=== PATIENT | male | born 1970 | race Caucasian/White ===

== ENCOUNTER 2019-10-21 20:23 | Inpatient (IN) ==
[2019-10-21] MEDS ORDERED: cefTRIAXone SODIUM 1,000 MG/50 ML BAG IV STA (20:54)
[2019-10-21] MEDS ORDERED: ACETAMINOPHEN 500 MG TAB PO STA (20:54)
[2019-10-21] MEDS ORDERED: SODIUM CHLORIDE 0.9% 1000ML 2,000 ML IV ONE (20:54)
--- NOTE | 2019-10-21 20:55 | XRay Report ---
XR chest 1V portable HISTORY: 48 years-old Male Sepsis acute sepsis COMPARISON: CT abdomen and pelvis 07/05/2013 TECHNIQUE: Portable AP view of the chest FINDINGS: Cardiac silhouette is mildly enlarged. No pneumothorax, pleural effusion or overt pulmonary edema. Th e right lung is clear. A large area of consolidation involving the lateral left midlung. Degenerative changes of the shoulders and spine. Possible loose body of the right subscapularis recess measures u p to approximately 2 cm. IMPRESSION: Large area of consolidation involving the lateral left midlung is suggestive of pneumonia in the appropriate clinical setting. Follow-up imaging after treatment course is needed to document resolution. ACT 112: Negative or not required by law. The above report was generated using voice recognition software. It may contain grammatical, syntax o r spelling errors. Electronically signed by: Franklin Shelby M.D. 10/21/2019 8:54 PM
[2019-10-21] MEDS ORDERED: AZITHROMYCIN 250 MG TAB PO ONE (20:58)
[2019-10-21 21:29] LABS: Basophils # (auto) 0.01 K/uL (0-0.2); Basophils % (auto) 0.1 %; Hematocrit (blood only) 39.7 % (42-52); Hemoglobin 14.8 g/dL (14.0-18.0); Immature Granulocytes # (auto) 0.02 K/uL (0.00-0.02); Immature Granulocytes % (auto) 0.2 %; Lymphocytes # (auto) 1.11 K/uL (1.2-3.4); Mean Corpuscular Hemoglobin 32.5 pg (25-34); Mean Corpuscular Hgb Conc 37.3 g/dL (32-36); Mean Corpuscular Volume 87.1 fL (80-100); Mean Platelet Volume 9.4 fL (7.4-10.4); Monocytes # (auto) 2.48 K/uL (0.11-0.59); Monocytes % (auto) 24.5 %; Neutrophils # (auto) 6.51 K/uL (1.4-6.5); Neutrophils % (auto) 64.2 %; Platelet Count 168 K/uL (130-400); RDW Coefficient of Variation 11.9 % (11.5-14.5); Red Blood Count 4.56 M/uL (4.7-6.1); White Blood Count 10.13 K/uL (4.8-10.8)
[2019-10-21 21:34] LABS: INR 1.1 (0.9-1.1); Partial Thromboplastin Ratio 1.2; Partial Thromboplastin Time 31.4 Seconds (21.0-31.0); Prothrombin Time 11.1 Seconds (9.0-12.0)
[2019-10-21 21:41] LABS: Albumin Level 3.2 gm/dl (3.4-5.0); BUN Creatinine Ratio 9.1 (10-20); Calcium 9.1 mg/dl (8.5-10.1); Creatinine Clr Calc Pharmacy 102.8 ml/min; Est GFR (African American) 100.1; Est GFR (Non-African American) 86.3; Potassium 3.1 mmol/L (3.5-5.1)
[2019-10-21 21:44] LABS: Albumin Globulin Ratio 0.7 (0.9-2); Bilirubin,Total 0.5 mg/dl (0.2-1); Globulin 4.7 gm/dl (2.5-4.0); Total Protein 7.9 gm/dl (6.4-8.2)
[2019-10-21 21:54] LABS: Appearance Urine Clear (Clear); Bacteria Urine Automated Negative (Negative); Bilirubin Urine Negative (Negative); Blood Urine Negative (Negative); Color Urine Dark Yellow; Glucose Urine UA Negative (Negative); Leukocyte Esterase Urine Negative (Negative); Nitrite Urine Negative (Negative); Protein Urine Trace (Negative); RBC Urine Automated 0-4 /hpf (0-4); Urobilinogen Urine Negative (Negative)
[2019-10-21 22:06] LABS: Ketones Urine 4+ (Negative)
--- NOTE | 2019-10-21 22:52 | History & Physical Report ---
Date of Service October 21, 2019 Assessment & Plan (1) Pneumonia: Manohar Garcia is a 48-year-old male with a past medical history of hypertension who presented with 1 week of fever, chills, shortness of breath, and productive cough and who is been admitted for left sided community-acquired pneumonia and hyponatremia. Sepsis 2/2 community-acquired pneumonia Left-sided consolidation on CXR Tachypneic, febrile, hypertensive on admission Continue empiric Rocephin, azithromycin Legionella antigen pending No indication for steroids at this time Lactate within normal limits No current oxygen requirement, goal SPO2 greater than 90% CBC daily Hyponatremia, sodium 124 Suspected 2/2 SIADH of pneumonia. Legionella antigen pending as above Received 2 L NSS bolus, continue NSS 125 cc/h. Expected correction rate of approximately 0.5 serum sodium per liter, expect more rapid correction if diuresis increases BMP daily Urine/serum osmolality, urine random sodium ordered Hypokalemia Potassium 3.1 Oral repletion, KCl 20 M EQ 3 times daily x1 day Hypertension Continue lisinopril Continue felodipine Right upper quadrant discomfort, mild abdominal distention Transaminases normal May have obstipation versus mild ileus in the setting of acute illness MiraLAX twice daily Recommend flat plate if no bowel movement within 1 day to assess stool burden DVT prophylaxis Ambulate Diet: Regular CODE STATUS: Full code (2) Hypertension: (3) Hyponatremia: (4) Sepsis: History of Present Illness Chief Complaint: Shortness of breath, right abdominal pain Primary Care Provider: Robert Velazquez DO Manohar Garcia is a 48-year-old male with a past medical history of hypertension who presents with 1 week of shortness of breath, productive cough, and fever suspicious for pneumonia. Manohar reports that he began feeling ill around 5 days ago, his symptoms started with a cough, congestion, and fever to 101. He has experienced chills and sweats. He has a decreased appetite and mild nausea, without vomiting. His cough has been productive for dark brown sputum. He has had a mild intermittent headache. Denies sinus congestion. Denies diarrhea or constipation. He has not had a bowel movement in 3 days. Denies dysuria. He has pain in his throat and upper chest on coughing, no chest pain or chest tightness at rest. No p alpitations. No pain on inspiration. His shortness of breath worsens with exertion. No history of asthma or COPD. He became concerned when he also developed right abdominal pain yesterday. Pain is worse on palpation. He endorses mild distention of his abdomen on the right side. He was prescribed doxycycline and prednisone as an outpatient, only took 1 dose of these before coming into the hospital for pneumonia with associated hyponatremia. Endorses 4 beer per day 6 night per week alcohol intake, no prior history of withdrawal. Last drink 7 days ago. Denies tremors. Medical history: Colorblindness, hypertension Medications: Lisinopril, felodipine. Doxycycline, prednisone for 1 day. Surgical history: Appendectomy, cholecystectomy. Right index finger, left ankle reconstruction without residual hardware. Social: Lives in [place] with his . Denies current and former tobacco use. Endorses 4 beer per night 6 nights a week alcohol intake. Last drink 7 days ago, no history of alcohol withdrawal. CODE STATUS: Full code, his would be his surrogate decision maker. Allergies Allergy/AdvReac Type Severity Reaction Status Date / Time morphine Allergy Mild RASH Unverified 10/21/19 21:52 Home Medications Home Medications Medication Instructions Recorded Confirmed Type codeine-guaifenesin 5 ml PO UD PRN 10/21/19 10/21/19 History doxycycline hyclate 100 mg PO BID 10/21/19 10/21/19 History felodipine 10 mg PO DAILY 10/21/19 10/21/19 History glucos sul 4GEw-[id number]-yfxlu-C-Mn 2 cap PO DAILY 10/21/19 10/21/19 History [Glucosamine Chondroitin] lisinopril 30 mg PO DAILY 10/21/19 10/21/19 History omega 4-wug-gym-fish oil [Fish Oil] 1 cap PO DAILY 10/21/19 10/21/19 History prednisone 40 mg PO UD 10/21/19 10/21/19 History Past Med/Surg History Surgical History (Updated 10/21/19 @ 23:02 by Oscra Jordan MD) H/O hand surgery R index finger, no residual hardware History of ankle surgery L ankle, no residual hardware Hx of cholecystectomy Status post appendectomy Social History Preferred Language: Moroccan Feels Safe at Home: Yes Smoking Status: Never smoker Review of Systems Review of Systems: All systems reviewed & are unremarkable except as noted in HPI & below Physical Exam Physical Exam: General: A&Ox3. Appears fatigued. Cooperative HEENT: Atraumatic, normocephalic. Pulm: Left-sided musical lung sounds with rales. Right side clear, without wheezes, rales, or rhonchi. Symmetrical chest rise. No increased work of breathing. No respiratory distress. On room air. Cardiac: Tachycardic, -mrg. Radial pulses intact and symmetrical. Abdominal: Softly distended, mild right upper quadrant tenderness. No rebound tenderness. Bowel sounds present, slightly decreased. CN II: Visual [place] are full to confrontation. Pupils are equal and react to light and accomidation. Visual acuity grossly intact. CN III, IV, : At primary gaze, there is no eye deviation. EoM intact without nystagmus. No visual field cuts. CN V: Facial sensation is intact to soft touch in all 3 divisions bilaterally. CN VII: No facial asymmetry, full strength to eyebrow raise, smile, eye close, and cheek puff. CN VII: Hearing is grossly intact. CN IX, X: Palate elevates symmetrically. Phonation is normal without dysarthria. CN XI: Head turning and shoulder shrug are intact CN XII: Tongue protrudes midline. Sensory: Light touch, pinprick intact in upper and low extremities without deficit or asymmetry. Strength: RUE: Shoulder flexion/extension/internal rotation/external rotation, elbow flexion/extension, finger flexion/extension, accessibility lift technician strength, interosseous 5/5 LUE: Shoulder flexion/extension/internal rotation/external rotation, elbow flexion/extension, finger flexion/extension, accessibility lift technician strength, interosseous 5/5 RLE: Hip flexion, knee flexion/extension, ankle plantar flexion/dorsiflexion 5/5 LLE: Hip flexion, knee flexion/extension, ankle plantar flexion/dorsiflexion 5/5 Results & Data Vital Signs (Past 12 Hours) Vital Signs Temp Pulse Resp BP Pulse Ox 10/21/19 22:31 104 H 15 91 10/21/19 22:30 106 H 17 145/91 H 92 10/21/19 22:01 110 H 22 92 10/21/19 22:00 115 H 20 150/90 H 93 10/21/19 21:44 110 H 19 91 10/21/19 21:43 110 H 26 H 152/89 H 92 10/21/19 21:40 113 H 20 92 10/21/19 21:30 121 H 18 10/21/19 21:00 114 H 27 H 10/21/19 20:57 113 H 19 10/21/19 20:28 39.0 C H 117 H 22 147/87 H 93 Supervising Physician Co-Signing Physician Notes Patient seen and examined, chart reviewed, case discussed with and I agree with his assessment and plan as documented above. Briefly, patient is a 48-year-old male with history of hypertension presenting with left- sided pneumonia. Patient complaining of cough/shortness of breath/nausea/chest pain associated with cough. On physical exam he is febrile at 39, tachycardic at 110 bpm, tachypneic at 26 breaths/min, saturating 92% on room air. Blood pressure stable at 152/89 Generalsitting comfortably in bed, no acute distress, ill in appearance Skinwarm, well-perfused, no rashes or lesions HEENTnormocephalic/atraumatic, pupils equal round and reactive to light, moist mucous membranes, neck supple Heart+ S1/S2, regular, tachycardic, no murmur/rub/gallops Lungsequal air entry bilaterally, left lung with scattered rhonchi and wheezes, right lung is clear to auscultation Abdomen+ bowel sounds, soft, nontender/nondistended Extremitieswarm, well-perfused, no clubbing/cyanosis/edema Labs and images reviewed. Significant for sodium = 124, potassium = 3.1, chloride = 87, flu was negative Chest x-ray with large area of consolidation involving the lateral left mid lung Assessment/[id number] male with history of hypertension presenting with left midlung pneumonia. Immunocompetent, no recent hospitalizations. Hyponatremia with sodium = 124. No prior labs to suggest chronicity. Patient is asymptomatic. Differential to include SIADH in setting of pulmonary illness, Legionella pneumonia, low solute state in patient with poor p.o. intake Admit to medical floor Treatment with azithromycin and ceftriaxone for community-acquired pneumonia Hyponatremia work-up with urine and serum osmolality, random urine sodium. -Remainder of plan as above Resident Activity Tracking Resident Involvement: Resident Care Provided Care Provided: [facility]
[2019-10-21] MEDS ORDERED: GUAIFENESIN/CODEINE 200MG/20MG 10ML UDC PO PRN (23:51)
[2019-10-21] MEDS ORDERED: ACETAMINOPHEN 325 MG TAB PO PRN (23:51)
[2019-10-21] MEDS ORDERED: ONDANSETRON INJ 2 MG/ML 2 ML VIAL IV PRN (23:51)
--- NOTE | 2019-10-21 23:51 | Emergency Department Note ---
Entered by Marisol Morgan acting as a scribe for Jake Roe DO History of Present Illness General Chief complaint: Referred by Doctor Stated complaint: LOW BLOOD CELLIUM Source: patient History of Present Illness Onset (ago): day(s) (5) Location: chest Pain Consistency: + other (worsening) Maximum Pain Intensity: 4 Quality: + other (pneumonia) Associated symptoms: + denies other symptoms (pain or burning with urination, sore throat, ear pain), + chest pain, + cough and + fever/chills; no nausea/vomiting The patient is a 48 year old male who presents to the Emergency Room with complaints of worsening pneumonia in his chest beginning 5 days ago. The patient reports a cough beginning 4 days ago, and chest pain beginning 2 days ago. He reports a fever of 101 - 103. The patient denies nausea, vomiting, pain or burning with urination, sore throat, and ear pain. He notes he visited his PCP earlier today who wants him to get a chest x-ray. He notes he was started on Doxycycline today. The patient reports a history of high blood pressure, an appendectomy, and a cholecystectomy. He states he drinks approximately 4 drinks per night several times a week. No other exacerbating or remitting factors. Home Medications Home Medications Medication Instructions Recorded Confirmed Type codeine-guaifenesin 5 ml PO UD PRN 10/21/19 10/21/19 History doxycycline hyclate 100 mg PO BID 10/21/19 10/21/19 History felodipine 10 mg PO DAILY 10/21/19 10/21/19 History glucos sul 8UMv-lgy-jdqoc-C-Mn 2 cap PO DAILY 10/21/19 10/21/19 History [Glucosamine Chondroitin] lisinopril 30 mg PO DAILY 10/21/19 10/21/19 History omega 5-iuj-hln-fish oil [Fish Oil] 1 cap PO DAILY 10/21/19 10/21/19 History prednisone 40 mg PO UD 10/21/19 10/21/19 History Allergies Allergy/AdvReac Type Severity Reaction Status Date / Time morphine Allergy Mild RASH Unverified 10/21/19 21:52 Past Med/Surg History Medical History Hypertension Surgical History H/O hand surgery R index finger, no residual hardware History of ankle surgery L ankle, no residual hardware Hx of cholecystectomy Status post appendectomy Family History Other Heart disease Hypertension Social History Preferred Language: [place] Feels Safe at Home: Yes Smoking Status: Never smoker Review of Systems See HPI for pertinent positives & negatives. and A total of 10 systems reviewed and were otherwise negative Physical Exam Vital Signs Vital Signs - 24 hr 10/21/19 20:28 10/21/19 20:57 10/21/19 21:00 Temperature 39.0 C H Temperature Source Oral Pulse Rate 117 H 113 H 114 H Pulse Rate from SpO2 Sensor Respiratory Rate 22 19 27 H Blood Pressure 147/87 H Blood Pressure Mean 107 Blood Pressure Position Sitting Pulse Oximetry 93 Oxygen Delivery Method Sepsis Recent Fever Within 48 Hours No Sepsis New/Unexplained Change in Mental Status No Sepsis Action Taken by Nursing No Action Required 10/21/19 21:30 10/21/19 21:40 10/21/19 21:43 Temperature Temperature Source Pulse Rate 121 H 113 H 110 H Pulse Rate from SpO2 Sensor 109 H Respiratory Rate 18 20 26 H Blood Pressure 152/89 H Blood Pressure Mean 95 Blood Pressure Position Pulse Oximetry 92 92 Oxygen Delivery Method Room Air Sepsis Recent Fever Within 48 Hours Sepsis New/Unexplained Change in Mental Status Sepsis Action Taken by Nursing 10/21/19 21:44 10/21/19 22:00 10/21/19 22:01 Temperature Temperature Source Pulse Rate 110 H 115 H 110 H Pulse Rate from SpO2 Sensor 110 H 114 H 110 H Respiratory Rate 19 20 22 Blood Pressure 150/90 H Blood Pressure Mean 96 Blood Pressure Position Pulse Oximetry 91 93 92 Oxygen Delivery Method Sepsis Recent Fever Within 48 Hours Sepsis New/Unexplained Change in Mental Status Sepsis Action Taken by Nursing 10/21/19 22:30 10/21/19 22:31 10/21/19 23:00 Temperature 37.3 C Temperature Source Pulse Rate 106 H 104 H 104 H Pulse Rate from SpO2 Sensor 106 H 104 H 104 H Respiratory Rate 17 15 23 Blood Pressure 145/91 H 123/86 Blood Pressure Mean 111 106 Blood Pressure Position Pulse Oximetry 92 91 92 Oxygen Delivery Method Room Air Sepsis Recent Fever Within 48 Hours Sepsis New/Unexplained Change in Mental Status Sepsis Action Taken by Nursing GENERAL: sitting up in bed, ill-appearing, wearing hospital gown EYE EXAM: normal conjunctiva OROPHARYNX: no exudate, no erythema, lips, buccal mucosa, and tongue normal and mucous membranes are dry NECK: supple, no nuchal rigidity, no adenopathy, non-tender LUNGS: Rhonchi in left mid lung. Normal chest wall mechanics HEART: tachycardia, no murmurs, S1 normal and S2 normal ABDOMEN: abdomen soft, non-tender, normo-active bowel sounds, no masses, no rebound or guarding. BACK: Back is symmetrical on inspection and there is no deformity, no midline tenderness, no CVA tenderness. SKIN: no rashes and no bruising UPPER EXTREMITIES: upper extremities are grossly normal. LOWER EXTREMITIES: No pitting edema. NEURO EXAM: Normal sensorium, cranial nerves II-XII grossly intact, normal speech, no gross weakness of arms, no gross weakness of legs. Course Course ED COURSE: Vital signs were reviewed and showed tachycardia, hypertension, and fever. The patients medical record was reviewed The above diagnostic studies were performed and reviewed. ED treatments and interventions as stated above. 2049: The patient was evaluated in room C08. A complete history and physical examination was performed. 2124: Upon reevaluation, the patient is resting more comfortably. I discussed my findings with the patient and he understands and agrees with the treatment plan. Based on the patients age, coexisting illnesses, exam and lab findings the decision to treat as an inpatient was made. I spoke with Dr. Swanson - [facility] Hospitalist who agrees to further evaluate the patient. The patient remained stable while under my care. The patient will be evaluated for further management. Administered Medications Discontinued Medications Acetaminophen (Tylenol) 1,000 mg PO NOW STA Stop: 10/21/19 20:55 Last Admin: 10/21/19 20:59 Dose: 1,000 mg Documented by: [id number] Azithromycin (Zithromax) 500 mg PO NOW ONE Stop: 10/21/19 20:59 Last Admin: 10/21/19 21:39 Dose: 500 mg Documented by: [id number] Ceftriaxone Sodium (Rocephin) 1,000 mg in 50 mls @ 100 mls/hr IV NOW STA Stop: 10/21/19 21:23 Last Infusion: 10/21/19 22:43 Dose: 0 mls/hr Documented by: [id number] Admin: 10/21/19 21:39 Dose: 100 mls/hr Documented by: [id number] Sodium Chloride (Nss 1000ml) 2,000 mls @ 999 mls/hr IV .Q2H1M ONE Stop: 10/21/19 22:54 Last Infusion: 10/21/19 23:19 Dose: 0 mls/hr Documented by: [id number] Admin: 10/21/19 21:37 Dose: 999 mls/hr Documented by: [id number] Medical Decision Making Differential Diagnosis Differential diagnosis includes etiologies such as sepsis, UTI, pneumonia, metabolic, electrolyte abnormalities, cardiac sources, intracerebral event, toxicologic, neurological, as well as others were entertained. Medical Records Attestation: I reviewed the patient's medical records. Home Medications Current Medication List: was personally reviewed by me Laboratory Data Attestation: I reviewed the patient's lab results. Result diagrams: 10/21/19 21:12 10/21/19 21:12 Lab Results 10/21/19 10/21/19 10/21/19 Range/Units 21:02 21:12 21:12 WBC 10.13 (4.8-10.8) K/uL RBC 4.56 L (4.7-6.1) M/uL Hgb 14.8 (14.0-18.0) g/dL Hct 39.7 L (42-52) % MCV 87.1 (80-100) fL MCH 32.5 (25-34) pg MCHC 37.3 H (32-36) g/dL RDW Std Deviation 38.0 (36.4-46.3) fL RDW Coeff of Patricio 11.9 (11.5-14.5) % Plt Count 168 (130-400) K/uL MPV 9.4 (7.4-10.4) fL Immature Gran % (Auto) 0.2 % Neut % (Auto) 64.2 % Lymph % (Auto) 11.0 % [place] % (Auto) 24.5 % Eos % (Auto) 0.0 % Baso % (Auto) 0.1 % Immature Gran # (Auto) 0.02 (0.00-0.02) K/uL Neut # (Auto) 6.51 H (1.4-6.5) K/uL Lymph # (Auto) 1.11 L (1.2-3.4) K/uL [place] # (Auto) 2.48 H (0.11-0.59) K/uL Eos # (Auto) 0.00 (0-0.5) K/uL Baso # (Auto) 0.01 (0-0.2) K/uL PT 11.1 (9.0-12.0) Seconds INR 1.1 (0.9-1.1) APTT 31.4 H (21.0-31.0) Seconds PTT Ratio 1.2 Sodium (136-145) mmol/L Potassium (3.5-5.1) mmol/L Chloride (98-107) mmol/L Carbon Dioxide (21-32) mmol/L Anion Gap (3-11) BUN (7-18) mg/dl Creatinine (0.6-1.4) mg/dl Est Cr Clr Drug Dosing ml/min Est GFR ( Amer) Est GFR (Non-Af Amer) BUN/Creatinine Ratio (10-20) Glucose (70-99) mg/dl Lactate (0.4-2.0) mmol/L Calcium (8.5-10.1) mg/dl Total Bilirubin (0.2-1) mg/dl AST (15-37) U/L ALT (12-78) U/L Alkaline Phosphatase (45-117) U/L Total Protein (6.4-8.2) gm/dl Albumin (3.4-5.0) gm/dl Globulin (2.5-4.0) gm/dl Albumin/Globulin Ratio (0.9-2) Urine Color Urine Appearance (Clear) Urine pH (4.5-7.5) Ur Specific [place]iple[place] (1.000-1.030) Urine Protein (Negative) Urine Glucose (UA) (Negative) Urine Ketones (Negative) Urine Blood (Negative) Urine Nitrite (Negative) Urine Bilirubin (Negative) Urine Urobilinogen (Negative) Ur Leukocyte Esterase (Negative) Urine WBC (Auto) (0-5) /hpf Urine RBC (Auto) (0-4) /hpf U Hyaline Cast (Auto) (0-5) /lpf U Epithel Cells (Auto) (0-5) /lpf Urine Bacteria (Auto) (Negative) Influenza Type A Ag Neg for Influ A (Neg) Influenza Type B Ag Neg for Influ B (Neg) 10/21/19 10/21/19 10/21/19 Range/Units 21:12 21:12 21:44 WBC (4.8-10.8) K/uL RBC (4.7-6.1) M/uL Hgb (14.0-18.0) g/dL Hct (42-52) % MCV (80-100) fL MCH (25-34) pg MCHC (32-36) g/dL RDW Std Deviation (36.4-46.3) fL RDW Coeff of Patricio (11.5-14.5) % Plt Count (130-400) K/uL MPV (7.4-10.4) fL Immature Gran % (Auto) % Neut % (Auto) % Lymph % (Auto) % [place] % (Auto) % Eos % (Auto) % Baso % (Auto) % Immature Gran # (Auto) (0.00-0.02) K/uL Neut # (Auto) (1.4-6.5) K/uL Lymph # (Auto) (1.2-3.4) K/uL [place] # (Auto) (0.11-0.59) K/uL Eos # (Auto) (0-0.5) K/uL Baso # (Auto) (0-0.2) K/uL PT (9.0-12.0) Seconds INR (0.9-1.1) APTT (21.0-31.0) Seconds PTT Ratio Sodium 124 L (136-145) mmol/L Potassium 3.1 L (3.5-5.1) mmol/L Chloride 87 L (98-107) mmol/L Carbon Dioxide 29 (21-32) mmol/L Anion Gap 9.0 (3-11) BUN 9 (7-18) mg/dl Creatinine 1.01 (0.6-1.4) mg/dl Est Cr Clr Drug Dosing 102.8 ml/min Est GFR ( Amer) 100.1 Est GFR (Non-Af Amer) 86.3 BUN/Creatinine Ratio 9.1 L (10-20) Glucose 97 (70-99) mg/dl Lactate 1.0 (0.4-2.0) mmol/L Calcium 9.1 (8.5-10.1) mg/dl Total Bilirubin 0.5 (0.2-1) mg/dl AST 30 (15-37) U/L ALT 25 (12-78) U/L Alkaline Phosphatase 85 (45-117) U/L Total Protein 7.9 (6.4-8.2) gm/dl Albumin 3.2 L (3.4-5.0) gm/dl Globulin 4.7 H (2.5-4.0) gm/dl Albumin/Globulin Ratio 0.7 L (0.9-2) Urine Color Dark Yellow Urine Appearance Clear (Clear) Urine pH 6.0 (4.5-7.5) Ur Specific [place] 1.020 (1.000-1.030) Urine Protein Trace H (Negative) Urine Glucose (UA) Negative (Negative) Urine Ketones 4+ H (Negative) Urine Blood Negative (Negative) Urine Nitrite Negative (Negative) Urine Bilirubin Negative (Negative) Urine Urobilinogen Negative (Negative) Ur Leukocyte Esterase Negative (Negative) Urine WBC (Auto) 1-5 (0-5) /hpf Urine RBC (Auto) 0-4 (0-4) /hpf U Hyaline Cast (Auto) 1-5 (0-5) /lpf U Epithel Cells (Auto) 5-10 H (0-5) /lpf Urine Bacteria (Auto) Negative (Negative) Influenza Type A Ag (Neg) Influenza Type B Ag (Neg) Imaging Data Radiologist's Impression: Radiology results as stated below per my review and the radiologist's interpretation: XR chest 1V portable HISTORY: 48 years-old Male Sepsis acute sepsis COMPARISON: CT abdomen and pelvis 07/05/2013 TECHNIQUE: Portable AP view of the chest FINDINGS: Cardiac silhouette is mildly enlarged. No pneumothorax, pleural effusion or overt pulmonary edema. The right lung is clear. A large area of consolidation involving the lateral left midlung. Degenerative changes of the shoulders and spine. Possible loose body of the right subscapularis recess measures up to approximately 2 cm. IMPRESSION: Large area of consolidation involving the lateral left midlung is suggestive of pneumonia in the appropriate clinical setting. Follow-up imaging after treatment course is needed to document resolution. ACT 112: Negative or not required by law. The above report was generated using voice recognition software. It may contain grammatical, syntax or spelling errors. Electronically signed by: Franklin Shelby M.D. 10/21/2019 8:54 PM Blood Pressure Blood Pressure Findings: Normal blood pressure Blood Pressure Disposition: Referred to patients primary care provider YAEL Narrative Patient is a 48-year-old male referred in by PCP. On arrival he is found to be tachycardic, tachypneic and hypertensive. Patient was also febrile. IVs were established blood work was obtained. Labs show no significant leukocytosis or anemia. INR was unremarkable. BMP with a sodium of 124 and a potassium of 3.1. Lactate was normal. LFTs bilirubin was unremarkable. UA with plus for ketones. No signs of infection. Influenza was negative. Blood cultures were obtained. Chest x-ray with an infiltrate on the left. Patient was given IV Rocephin and azithromycin. He was given 2 L IV fluids. He was updated bedside. Heart rate trended down from 130s to the low 100s. He was updated at bedside. He was admitted to the hospitalist for sepsis secondary to pneumonia in combination with hyponatremia. Impression & Plan Sepsis, Pneumonia, Hyponatremia Discharge Plan Visit Data Chief Complaint: Referred by Doctor Stated Complaint: LOW BLOOD CELLIUM ED Provider: Jake Roe Discharge Problem: Sepsis, Pneumonia, Hyponatremia Patient Disposition: Being Evaluated by Hospitalist Discharge Instructions Interventions: ED Discharge Assessment Last Done: 10/21/19 23:26 Discharge Problem: Sepsis Qualifiers: Sepsis type: sepsis due to unspecified organism Sepsis acute organ dysfunction status: unspecified Qualified Code(s): A41.9 - Sepsis, unspecified organism Pneumonia Qualifiers: Pneumonia type: due to unspecified organism Laterality: unspecified laterality Lung location: unspecified part of lung Qualified Code(s): J18.9 - Pneumonia, unspecified organism The scribe's documentation has been prepared under my direction and personally reviewed by me in its entirety. I confirm that the note above accurately reflects all work, treatment, procedures, and medical decision making performed by me.
[2019-10-22] MEDS ORDERED: GUAIFENESIN/CODEINE 100MG/10MG 5ML UDC PO PRN (00:06)
[2019-10-22] MEDS: SODIUM CHLORIDE 0.9% 1000ML 1,000 ML IV SCH ×2 (00:39→08:19)
[2019-10-22] MEDS ORDERED: HYDROmorphone INJ 0.5 MG/0.5 ML SYR IV PRN (03:01)
[2019-10-22 03:32] LABS: Basophils # (auto) 0.02 K/uL (0-0.2); Basophils % (auto) 0.2 %; Eosinophils # (auto) 0.01 K/uL (0-0.5); Eosinophils % (auto) 0.1 %; Hematocrit (blood only) 38.4 % (42-52); Hemoglobin 13.8 g/dL (14.0-18.0); Immature Granulocytes # (auto) 0.01 K/uL (0.00-0.02); Immature Granulocytes % (auto) 0.1 %; Lymphocytes # (auto) 1.56 K/uL (1.2-3.4); Lymphocytes % (auto) 17.8 %; Mean Corpuscular Hemoglobin 31.6 pg (25-34); Mean Corpuscular Hgb Conc 35.9 g/dL (32-36); Mean Corpuscular Volume 87.9 fL (80-100); Mean Platelet Volume 8.8 fL (7.4-10.4); Monocytes # (auto) 1.76 K/uL (0.11-0.59); Monocytes % (auto) 20.1 %; Neutrophils # (auto) 5.39 K/uL (1.4-6.5); Neutrophils % (auto) 61.7 %; Platelet Count 168 K/uL (130-400); RDW Standard Deviation 38.5 fL (36.4-46.3); Red Blood Count 4.37 M/uL (4.7-6.1); White Blood Count 8.75 K/uL (4.8-10.8)
[2019-10-22 03:50] LABS: BUN Creatinine Ratio 9.5 (10-20); Calcium 8.2 mg/dl (8.5-10.1); Creatinine Clr Calc Pharmacy 118.9 ml/min; Est GFR (African American) 117.2; Est GFR (Non-African American) 101.1; Magnesium 2.1 mg/dl (1.8-2.4); Potassium 3.4 mmol/L (3.5-5.1)
[2019-10-22] MEDS: POLYETHYLENE (MIRALAX) 17 GM PACK PO SCH ×2 (08:20→20:09)
[2019-10-22] MEDS: lisinopriL 10 MG TAB PO SCH (08:20)
[2019-10-22] MEDS: OMEGA-3 (PURIFIED FISH OIL) 1 GM CAP PO SCH (08:20)
[2019-10-22] MEDS: POTASSIUM CHLORIDE 20 MEQ TABCR PO SCH ×3 (08:20→20:09)
[2019-10-22] MEDS: FELODIPINE 5 MG TABCR PO SCH (08:21)
[2019-10-22] MEDS ORDERED: NON-FORMULARY MEDICATION (Glucos Sul 2kcl-Msm-Chond-C-Mn [Glucosamine Chondroitin] 2 CAP) PO SCH (09:00)
[2019-10-22] MEDS ORDERED: COUGH DROP (SUGAR FREE) LOZ 24 LOZ/1 BOX BUCCAL PRN (10:37)
--- NOTE | 2019-10-22 12:32 | Hospitalist Progress Note ---
Date of Service October 22, 2019 Assessment & Plan (1) Pneumonia: Manohar Garcia is a 48-year-old male with a past medical history of hypertension who presented with 1 week of fever, chills, shortness of breath, and productive cough and who is been admitted for left sided community-acquired pneumonia and hyponatremia. Sepsis 2/2 community-acquired pneumonia Left-sided consolidation on CXR Tachypneic, febrile, hypertensive on admission- resolved Continue empiric Rocephin, azithromycin. 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 Expected correction rate of approximately 0.5 serum sodium per liter, expect more rapid correction if diuresis increases BMP daily Urine/serum osmolality, urine random sodium ordered Hypokalemia-improving Oral repletion, KCl 20 M EQ 3 times daily x1 day Hypertension Continue lisinopril Continue felodipine Right upper quadrant discomfort, mild abdominal distention- resolved Transaminases normal May have obstipation versus mild ileus in the setting of acute illness MiraLAX twice daily Recommend flat plate if no bowel movement within 1 day to assess stool burden FEN/GI: Regular DVT prophylaxis: Ambulation CODE STATUS: Full code Dispo: Med Surg, Anticipate d/c tomorrow Supervising Physician Co-Signing Physician Notes Resident Physician Supervision Note: I independently interviewed and examined the patient and verified the farmer history and physical, reviewed labs and image studies, discussed the case with the resident Dr. Dickinson and agree with the findings and care plan. Subjective 48 yo M found in bed this AM in NAD. No reported overnight events. States feels much better now, breathing much improved. States desire to go home. Tolerating PO intake. No other acute concerns or complaints. Review of Systems Review of Systems: All systems reviewed & are unremarkable except as noted in HPI & below Physical Exam Constitutional: WD/WN, vitals as above Eyes: PERRL, conjunctivae normal, anicteric sclerae ENMT: external ear and nose normal, oropharynx normal Respiratory: Auscultation: + rhonchi Cardiovascular: RRR, no murmur, no edema Gastrointestinal (Abdomen): normal bowel sounds, soft, nontender, no hepatosplenomegaly Skin: no rashes, warm and dry Psychiatric: A+Ox3, euthymic affect Results & Data Vital Signs (Past 12 Hours) Vital Signs Temp Pulse Resp BP Pulse Ox 10/22/19 07:21 37.9 C H 98 H 18 130/82 94 Laboratory Results Laboratory Results - last 24 hr 10/21/19 10/21/19 10/21/19 21:02 21:10 21:12 WBC 10.13 RBC 4.56 L Hgb 14.8 Hct 39.7 L MCV 87.1 MCH 32.5 MCHC 37.3 H RDW Std Deviation 38.0 RDW Coeff of Patricio 11.9 Plt Count 168 MPV 9.4 Immature Gran % (Auto) 0.2 Neut % (Auto) 64.2 Lymph % (Auto) 11.0 Jack % (Auto) 24.5 Eos % (Auto) 0.0 Baso % (Auto) 0.1 Immature Gran # (Auto) 0.02 Neut # (Auto) 6.51 H Lymph # (Auto) 1.11 L Jack # (Auto) 2.48 H Eos # (Auto) 0.00 Baso # (Auto) 0.01 PT INR APTT PTT Ratio Sodium Potassium Chloride Carbon Dioxide Anion Gap BUN Creatinine Est Cr Clr Drug Dosing Est GFR ( Amer) Est GFR (Non-Af Amer) BUN/Creatinine Ratio Glucose Osmolality 259 L Lactate Calcium Magnesium Total Bilirubin AST ALT Alkaline Phosphatase Troponin I Total Protein Albumin Globulin Albumin/Globulin Ratio Urine Color Urine Appearance Urine pH Ur Specific [place] Urine Protein Urine Glucose (UA) Urine Ketones Urine Blood Urine Nitrite Urine Bilirubin Urine Urobilinogen Ur Leukocyte Esterase Urine WBC (Auto) Urine RBC (Auto) U Hyaline Cast (Auto) U Epithel Cells (Auto) Urine Bacteria (Auto) Urine Osmolality Ur Random Sodium Influenza Type A Ag Neg for Influ A Influenza Type B Ag Neg for Influ B Urine Legionella Ag 10/21/19 10/21/19 10/21/19 21:12 21:12 21:12 WBC RBC Hgb Hct MCV MCH MCHC RDW Std Deviation RDW Coeff of Patricio Plt Count MPV Immature Gran % (Auto) Neut % (Auto) Lymph % (Auto) Jack % (Auto) Eos % (Auto) Baso % (Auto) Immature Gran # (Auto) Neut # (Auto) Lymph # (Auto) Jack # (Auto) Eos # (Auto) Baso # (Auto) PT 11.1 INR 1.1 APTT 31.4 H PTT Ratio 1.2 Sodium 124 L Potassium 3.1 L Chloride 87 L Carbon Dioxide 29 Anion Gap 9.0 BUN 9 Creatinine 1.01 Est Cr Clr Drug Dosing 102.8 Est GFR ( Amer) 100.1 Est GFR (Non-Af Amer) 86.3 BUN/Creatinine Ratio 9.1 L Glucose 97 Osmolality Lactate 1.0 Calcium 9.1 Magnesium Total Bilirubin 0.5 AST 30 ALT 25 Alkaline Phosphatase 85 Troponin I Total Protein 7.9 Albumin 3.2 L Globulin 4.7 H Albumin/Globulin Ratio 0.7 L Urine Color Urine Appearance Urine pH Ur Specific [place] Urine Protein Urine Glucose (UA) Urine Ketones Urine Blood Urine Nitrite Urine Bilirubin Urine Urobilinogen Ur Leukocyte Esterase Urine WBC (Auto) Urine RBC (Auto) U Hyaline Cast (Auto) U Epithel Cells (Auto) Urine Bacteria (Auto) Urine Osmolality Ur Random Sodium Influenza Type A Ag Influenza Type B Ag Urine Legionella Ag 10/21/19 10/21/19 10/21/19 21:44 21:44 21:44 WBC RBC Hgb Hct MCV MCH MCHC RDW Std Deviation RDW Coeff of Patricio Plt Count MPV Immature Gran % (Auto) Neut % (Auto) Lymph % (Auto) Jack % (Auto) Eos % (Auto) Baso % (Auto) Immature Gran # (Auto) Neut # (Auto) Lymph # (Auto) Jack # (Auto) Eos # (Auto) Baso # (Auto) PT INR APTT PTT Ratio Sodium Potassium Chloride Carbon Dioxide Anion Gap BUN Creatinine Est Cr Clr Drug Dosing Est GFR ( Amer) Est GFR (Non-Af Amer) BUN/Creatinine Ratio Glucose Osmolality Lactate Calcium Magnesium Total Bilirubin AST ALT Alkaline Phosphatase Troponin I Total Protein Albumin Globulin Albumin/Globulin Ratio Urine Color Dark Yellow Urine Appearance Clear Urine pH 6.0 Ur Specific [place] 1.020 Urine Protein Trace H Urine Glucose (UA) Negative Urine Ketones 4+ H Urine Blood Negative Urine Nitrite Negative Urine Bilirubin Negative Urine Urobilinogen Negative Ur Leukocyte Esterase Negative Urine WBC (Auto) 1-5 Urine RBC (Auto) 0-4 U Hyaline Cast (Auto) 1-5 U Epithel Cells (Auto) 5-10 H Urine Bacteria (Auto) Negative Urine Osmolality 635 Ur Random Sodium Influenza Type A Ag Influenza Type B Ag Urine Legionella Ag Pending 10/21/19 10/22/19 10/22/19 21:44 03:21 03:21 WBC 8.75 RBC 4.37 L Hgb 13.8 L Hct 38.4 L MCV 87.9 MCH 31.6 MCHC 35.9 RDW Std Deviation 38.5 RDW Coeff of Patricio 12.0 Plt Count 168 MPV 8.8 Immature Gran % (Auto) 0.1 Neut % (Auto) 61.7 Lymph % (Auto) 17.8 Jack % (Auto) 20.1 Eos % (Auto) 0.1 Baso % (Auto) 0.2 Immature Gran # (Auto) 0.01 Neut # (Auto) 5.39 Lymph # (Auto) 1.56 Jack # (Auto) 1.76 H Eos # (Auto) 0.01 Baso # (Auto) 0.02 PT INR APTT PTT Ratio Sodium 128 L Potassium 3.4 L Chloride 96 L Carbon Dioxide 29 Anion Gap 3.0 BUN 8 Creatinine 0.86 Est Cr Clr Drug Dosing 118.9 Est GFR ( Amer) 117.2 Est GFR (Non-Af Amer) 101.1 BUN/Creatinine Ratio 9.5 L Glucose 95 Osmolality Lactate Calcium 8.2 L Magnesium 2.1 Total Bilirubin AST ALT Alkaline Phosphatase Troponin I Total Protein Albumin Globulin Albumin/Globulin Ratio Urine Color Urine Appearance Urine pH Ur Specific [place] Urine Protein Urine Glucose (UA) Urine Ketones Urine Blood Urine Nitrite Urine Bilirubin Urine Urobilinogen Ur Leukocyte Esterase Urine WBC (Auto) Urine RBC (Auto) U Hyaline Cast (Auto) U Epithel Cells (Auto) Urine Bacteria (Auto) Urine Osmolality Ur Random Sodium 9 Influenza Type A Ag Influenza Type B Ag Urine Legionella Ag 10/22/19 10/22/19 03:21 08:55 WBC RBC Hgb Hct MCV MCH MCHC RDW Std Deviation RDW Coeff of Patricio Plt Count MPV Immature Gran % (Auto) Neut % (Auto) Lymph % (Auto) Jack % (Auto) Eos % (Auto) Baso % (Auto) Immature Gran # (Auto) Neut # (Auto) Lymph # (Auto) Jack # (Auto) Eos # (Auto) Baso # (Auto) PT INR APTT PTT Ratio Sodium Potassium Chloride Carbon Dioxide Anion Gap BUN Creatinine Est Cr Clr Drug Dosing Est GFR ( Amer) Est GFR (Non-Af Amer) BUN/Creatinine Ratio Glucose Osmolality Lactate Calcium Magnesium Total Bilirubin AST ALT Alkaline Phosphatase Troponin I 0.031 0.019 Total Protein Albumin Globulin Albumin/Globulin Ratio Urine Color Urine Appearance Urine pH Ur Specific [place] Urine Protein Urine Glucose (UA) Urine Ketones Urine Blood Urine Nitrite Urine Bilirubin Urine Urobilinogen Ur Leukocyte Esterase Urine WBC (Auto) Urine RBC (Auto) U Hyaline Cast (Auto) U Epithel Cells (Auto) Urine Bacteria (Auto) Urine Osmolality Ur Random Sodium Influenza Type A Ag Influenza Type B Ag Urine Legionella Ag Medications Administered Current Inpatient Medications Acetaminophen (Tylenol) 650 mg PO Q4H PRN PRN Reason: pain/fever Stop: 11/20/19 23:50 Felodipine (Plendil) 10 mg PO DAILY [facility] Stop: 11/21/19 08:59 Last Admin: 10/22/19 08:21 Dose: 10 mg Documented by: Fish Oil (Kaleva-3 (Purified Fish Oil)) 1 gm PO DAILY [facility] Stop: 11/21/19 08:59 Last Admin: 10/22/19 08:20 Dose: 1 gm Documented by: Guaifenesin/Codeine Phosphate (Robitussin-Ac Sugar Free) 5 ml PO Q4H PRN PRN Reason: Cough Stop: 11/21/19 00:05 Last Admin: 10/22/19 00:39 Dose: 5 ml Documented by: Hydromorphone HCl (Dilaudid) 0.5 mg IV Q3H PRN PRN Reason: pain Stop: 11/05/19 03:14 Ceftriaxone Sodium 2,000 mg/ (Dextrose) 70 mls @ 100 mls/hr IV Q24H [facility]; Protocol Stop: 10/29/19 19:59 Azithromycin 250 mg/ Dextrose 252.5 mls @ 125 mls/hr IV Q24H [facility] Stop: 10/29/19 20:59 Lisinopril (Zestril) 30 mg PO DAILY [facility] Stop: 11/21/19 08:59 Last Admin: 10/22/19 08:20 Dose: 30 mg Documented by: Menthol (Nice) 1 conchis BUCCAL PRN PRN PRN Reason: Sore Throat Stop: 11/21/19 10:36 Last Admin: 10/22/19 11:34 Dose: 1 conchis Documented by: Ondansetron HCl (Zofran) 4 mg IV Q6H PRN PRN Reason: Nausea Stop: 11/20/19 23:50 Polyethylene Glycol (Miralax Powder Packet) 17 gm PO BID JS Stop: 11/21/19 08:59 Last Admin: 10/22/19 08:20 Dose: Not Given Documented by: Potassium Chloride (Klor-Con M20) 20 meq PO TID JS Stop: 10/24/19 08:59 Last Admin: 10/22/19 08:20 Dose: 20 meq Documented by: Resident Activity Tracking Resident Involvement: Resident Care Provided Care Provided: Adult Hospital Medicine (1) Pneumonia Laterality: unspecified laterality Lung location: unspecified part of lung Pneumonia type: due to unspecified organism Qualified Code(s): J18.9 - Pneumonia, unspecified organism
[2019-10-22] MEDS ORDERED: cefTRIAXone SODIUM 2,000 MG in DEXTROSE 5% 50 ML IV SCH (20:00)
[2019-10-22] MEDS ORDERED: AZITHROMYCIN 250 MG in DEXTROSE 5% 250 ML IV SCH (21:00)
[2019-10-23 06:04] LABS: Basophils # (auto) 0.03 K/uL (0-0.2); Basophils % (auto) 0.4 %; Eosinophils # (auto) 0.05 K/uL (0-0.5); Eosinophils % (auto) 0.7 %; Hematocrit (blood only) 36.6 % (42-52); Immature Granulocytes # (auto) 0.02 K/uL (0.00-0.02); Immature Granulocytes % (auto) 0.3 %; Lymphocytes # (auto) 1.23 K/uL (1.2-3.4); Lymphocytes % (auto) 17.4 %; Mean Corpuscular Hemoglobin 31.6 pg (25-34); Mean Corpuscular Hgb Conc 35.5 g/dL (32-36); Mean Corpuscular Volume 88.8 fL (80-100); Mean Platelet Volume 9.2 fL (7.4-10.4); Monocytes # (auto) 1.71 K/uL (0.11-0.59); Monocytes % (auto) 24.2 %; Neutrophils # (auto) 4.04 K/uL (1.4-6.5); Platelet Count 200 K/uL (130-400); RDW Coefficient of Variation 12.2 % (11.5-14.5); RDW Standard Deviation 39.3 fL (36.4-46.3); Red Blood Count 4.12 M/uL (4.7-6.1); White Blood Count 7.08 K/uL (4.8-10.8)
[2019-10-23 06:35] LABS: BUN Creatinine Ratio 6.9 (10-20); Calcium 8.5 mg/dl (8.5-10.1); Creatinine Clr Calc Pharmacy 136.4 ml/min; Potassium 3.4 mmol/L (3.5-5.1)
[2019-10-23] MEDS: OMEGA-3 (PURIFIED FISH OIL) 1 GM CAP PO SCH (07:38)
[2019-10-23] MEDS: FELODIPINE 5 MG TABCR PO SCH (07:39)
[2019-10-23] MEDS: POLYETHYLENE (MIRALAX) 17 GM PACK PO SCH (07:40)
[2019-10-23] MEDS: lisinopriL 10 MG TAB PO SCH (07:40)
[2019-10-23] MEDS: POTASSIUM CHLORIDE 20 MEQ TABCR PO SCH (07:53)
--- NOTE | 2019-10-23 08:53 | Discharge Summary ---
Date of Service October 23, 2019 Admission HPI Per Admitting Provider Manohar Garcia is a 48-year-old male with a past medical history of hypertension who presents with 1 week of shortness of breath, productive cough, and fever suspicious for pneumonia. Manohar reports that he began feeling ill around 5 days ago, his symptoms started with a cough, congestion, and fever to 101. He has experienced chills and sweats. He has a decreased appetite and mild nausea, without vomiting. His cough has been productive for dark brown sputum. He has had a mild intermittent headache. Denies sinus congestion. Denies diarrhea or constipation. He has not had a bowel movement in 3 days. Denies dysuria. He has pain in his throat and upper chest on coughing, no chest pain or chest tightness at rest. No palpitations. No pain on inspiration. His shortness of breath worsens with exertion. No history of asthma or COPD. He became concerned when he also developed right abdominal pain yesterday. Pain is worse on palpation. He endorses mild distention of his abdomen on the right side. He was prescribed doxycycline and prednisone as an outpatient, only took 1 dose of these before coming into the hospital for pneumonia with associated hyponatremia. Endorses 4 beer per day 6 night per week alcohol intake, no prior history of withdrawal. Last drink 7 days ago. Denies tremors. Medical history: Colorblindness, hypertension Medications: Lisinopril, felodipine. Doxycycline, prednisone for 1 day. Surgical history: Appendectomy, cholecystectomy. Right index finger, left ankle reconstruction without residual hardware. Social: Lives in [place] with his . Denies current and former tobacco use. Endorses 4 beer per night 6 nights a week alcohol intake. Last drink 7 days ago, no history of alcohol withdrawal. CODE STATUS: Full code, his would be his surrogate decision maker. Principal Diagnosis pna Discharge Exam Constitutional WD/WN, vitals as above Eyes PERRL, conjunctivae normal, anicteric sclerae ENMT external ear and nose normal, oropharynx normal Respiratory Auscultation: + rhonchi Cardiovascular RRR, no murmur, no edema Gastrointestinal (Abdomen) normal bowel sounds, soft, nontender, no hepatosplenomegaly Skin no rashes, warm and dry Psychiatric A+Ox3, euthymic affect Discharge Data Allergies Allergy/AdvReac Type Severity Reaction Status Date / Time morphine Allergy Mild RASH Unverified 10/21/19 21:52 Consultations 10/21/19 21:58 ED Decision to Admit Stat Hospital Course (1) Pneumonia: Manohar Garcia is a 48-year-old male with a past medical history of hypertension who presented with 1 week of fever, chills, shortness of breath, and productive cough and who is been admitted for left sided community-acquired pneumonia and hyponatremia. The following was the medical management during stay here: Sepsis 2/2 community-acquired pneumonia Left-sided consolidation on CXR Tachypneic, febrile, hypertensive on admission- resolved Continued empiric Rocephin, azithromycin. 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 Total Time Total Time Spent Total Time Spent (In Minutes): 30 Discharge Plan Discharge Items Patient Disposition: Home - Self-Care Reason For Visit: PNA,HYPONATREMIA Discharge Diagnosis: pneumonia Activity: Per Instructions section Non-emergency contact: Primary Care Provider Call non-emergency contact if: you have any medication questions, your symptoms worsen and your temperature is above 101.5 Follow-up/Referrals: Robert Velazquez DO [Primary Care Provider] - Diet: Regular Addtl Attending Provider Instructions: You were admitted with concerns of pneumonia that was seen on chest xray. Please follow the below instructions on discharge: -Please see your PCP within one week for normal hospital follow up -You will continue antibiotic azithromycin for additional 3 days after discharge -Please stop taking the doxycycline and prednisone that you were taking prior to hospital admission. These are no longer needed -Cont previous home medications as before on discharge -if you notice symptoms similar to those that brought you into the hospital or if they persist, please see your PCP earlier than scheduled appt date Pending Studies at Discharge: No Stand-Alone Forms: My [facility], Smoking Cessation Medications and DC Order Prescriptions: New azithromycin [Zithromax] 250 mg tablet 250 mg PO DAILY 3 Days Qty: 3 RF: 0 Continued lisinopril 30 mg tablet 30 mg PO DAILY RF: 0 felodipine 10 mg tablet extended release 24 hr 10 mg PO DAILY RF: 0 codeine-guaifenesin 10-100 mg/5 mL liquid 5 ml PO UD PRN (Reason: Cough) RF: 0 omega 6-dse-ocl-fish oil [Fish Oil] 1,000 mg (120 mg-180 mg) Capsule 1 cap PO DAILY RF: 0 Glucosamine Chondroitin 550-30-1 mg Capsule 2 cap PO DAILY RF: 0 Discontinued doxycycline hyclate 100 mg capsule 100 mg PO BID RF: 0 prednisone 20 mg tablet 40 mg PO UD RF: 0 Discharge Orders: Discharge Order (Routine); Ordered 10/23/19 Ordered By: Seven Dickinson Admission Data Admit Date/Time: 10/21/19 23:03 Attending Provider: Rebekah Meredith Admit Provider: Oscar Jordan Primary Care Provider: Robert Velazquez Other Providers: Eileen Swanson Other Interventions: Discharge Summary Assessment (RN) Last Done: 10/23/19 11:21 DC Date/Time DO NOT enter until pt leaves facility: 10/23/19 12:00 Supervising Physician Co-Signing Physician Notes Resident Physician Supervision Note: I independently interviewed and examined the patient and verified the farmer history and physical, reviewed labs and image studies, discussed the case with the resident Dr. Dickinson and agree with the findings and care plan. Resident Activity Tracking Resident Involvement: Resident Care Provided Care Provided: Adult Hospital Medicine
[2019-10-23] MEDS ORDERED: POTASSIUM CHLORIDE 20 MEQ TABCR PO SCH (09:00)
== END 2019-10-23 12:00 | disposition home or self-care (01) | DRG 193 ==
LOC: ED 20:23 → SUATTDRO 23:03 → 4W 23:03